=== PATIENT | female | born 1940 | race Caucasian/White ===

== ENCOUNTER 2019-07-03 15:26 | Outpatient (CLI) | payer MEDICARE, OTHER | END 2019-07-03 15:27 | disposition short-term general hospital (02) | LOC: EMS 15:26 | PROVIDERS: ATTEND Surgery | DX: R10.9 Unspecified abdominal pain (principal) | CPT/HCPCS: A0425; A0429; A0888 ==

== ENCOUNTER 2019-07-04 05:29 | Outpatient (CLI) | payer MEDICARE, OTHER | END 2019-07-04 05:30 | disposition short-term general hospital (02) | LOC: EMS 05:29 | PROVIDERS: ATTEND Surgery | DX: R04.2 Hemoptysis (principal) | CPT/HCPCS: A0425; A0429; A0888 ==